=== PATIENT | male | born 1995 | race Caucasian/White ===

== ENCOUNTER 2022-09-30 18:36 | Emergency (ER) | payer SELFPAY ==
[2022-09-30] MEDS ORDERED: Orphenadrine 60 MG/2 ML Inj IM ONE (19:54)
[2022-09-30] MEDS ORDERED: Ondansetron 4 MG/2 ML SDV IVPUSH ONE (19:55)
[2022-09-30] MEDS ORDERED: HYDROmorphone 1 MG/ML Syringe IVPUSH ONE (19:55)
== END 2022-09-30 21:01 | disposition home or self-care (01) ==
LOC: MW.ED 18:36
DX: M54.50 Low back pain, unspecified (principal); Z72.0 Tobacco use; X50.0XXA Overexertion from strenuous movement or load, initial encounter; Y99.0 Civilian activity done for income or pay
CPT/HCPCS: 81001; 96372; 96374; 96375; 99284; J1170; J2360; J2405; 99283